=== PATIENT | female | born 1960 | race Caucasian/White ===

== ENCOUNTER 2016-07-19 11:46 | Emergency (ER) | payer BC ==
[2016-07-19 13:04] VITALS: BP 127/72
--- NOTE | 2016-07-19 14:05 | UC ---
Throat Pain/Nasal James HPI - HPI Summary HPI Summary: 55 female presents with complaints of having a possible sinus infection. She has been experiencing worsening nasal congestion, coughing, yellow nasal drainage, watery eyes, sinus pressure and headache that began about 3 days ago. Has been trying Dayquil and Ibuprofen without much relief. Patient has been unable to sleep and breathe out of her nose due to the congestion. Pressure in her head when bending over. Sinus pressure causing headache. Denies visual changes. States the post nasal drip has been causing her to cough. Denies any difficulty breathing, chest pain and SOB. She admits to some bilateral ear pain/ pressure. Has not recently been on antibiotics. Washing dishes with hot water does make her symptoms better. Denies fever/chills but does feel feverish at night, vomiting and diarrhea. Does admit to some nausea from the mucus production she feels she is swallowing at times. - History of Current Complaint Chief Complaint: UC Stated Complaint: SINUS,SORE THROAT,EAR PAIN Time Seen by Provider: 07/19/16 13:49 Hx Obtained From: Patient ?: No Onset/Duration: Sudden Onset, Lasting Days, Still Present, Worse Since Severity: Moderate Pain Intensity: 8 Pain Scale Used: 0-10 Numeric Cough: Sputum Appears - yellow Associated Signs & Symptoms: Positive: Sinus Discomfort, Nasal Discharge - Allergies/Home Medications Allergies/Adverse Reactions: Allergies Allergy/AdvReac Type Severity Reaction Status Date / Time No Known Allergies Allergy Verified 07/19/16 13:03 Home Medications: Home Medications Lisinopril TAB* [Prinivil TAB*] 5 mg PO DAILY 07/19/16 [History Confirmed ] [id number] [Vicks Dayquil/Nyquil Cold] 30 ml PO Q6H PRN 05/06 [History Confirmed 07/19/16] Sitagliptin Phosphate [Januvia] 25 mg PO DAILY 07/19/16 [History Confirmed 07/19] PMH/Surg Hx/FS Hx/Imm Hx Endocrine History Of: Reports: Diabetes Cardiovascular History Of: Reports: Cardiac Disorders - mitralvalve prolapse, Hypertension Cancer History Of: Denies: Breast Cancer - Surgical History Surgical History: Yes Surgery Procedure, Year, and Place: D&C AFTER MISCARRAGE. TONSILLECTOMY - Family History Known Family History: Positive: None - Social History Alcohol Use: Rare Substance Use Type: None Smoking Status (MU): Never Smoked Tobacco Have You Smoked in the Last Year: No - Immunization History Most Recent Influenza Vaccination: no Review of Systems Constitutional: Negative Skin: Negative Eyes: Negative ENT: Sore Throat, Ear Ache, Nasal Discharge, Other - sinus pressure Respiratory: Cough Cardiovascular: Negative Gastrointestinal: Negative Motor: Negative Neurovascular: Negative Musculoskeletal: Negative Neurological: Headache Psychological: Negative All Other Systems Reviewed And Are Negative: Yes Physical Exam Triage Information Reviewed: Yes Appearance: No Pain Distress, Well-Nourished, Ill-Appearing Vital Signs: Initial Vital Signs Temp 98 F 07/19/16 12:55 Pulse 91 07/19/16 12:55 Resp 18 07/19/16 12:55 BP 127/72 07/19/16 12:55 Pulse Ox 99 07/19/16 12:55 Vital Signs Reviewed: Yes Eye Exam: Normal Eyes: Positive: Conjunctiva Clear ENT: Positive: Normal ENT inspection, Hearing grossly normal, Pharynx normal, Nasal congestion, Nasal drainage, TMs normal. Negative: Tonsillar swelling, Tonsillar exudate Dental Exam: Normal Dental: Positive: Percussion Tenderness @ - maxillary and frontal. Negative: Cervical Lymphadenopathy Neck: Positive: Supple, Nontender, No Lymphadenopathy Respiratory: Positive: Chest non-tender, Lungs clear, Normal breath sounds, No respiratory distress, No accessory muscle use, Wheezing - left lower, patient has history of asthma and uses an inhaler Cardiovascular: Positive: RRR, No Murmur, Pulses Normal, Brisk Capillary Refill Abdomen Description: Positive: Nontender, No Organomegaly, Soft Bowel Sounds: Positive: Present Musculoskeletal Exam: Normal Musculoskeletal: Positive: Strength Intact, ROM Intact, No Edema Neurological Exam: Normal Psychological Exam: Normal Skin Exam: Normal Throat Pain/Nasal Course/Dx - Course Course Of Treatment: patient will be treated for sinusitis outpatient with augmentin and flonase. OTC remedies recommended. aware of worsening signs and symptoms to watch out for. - Differential Dx/Diagnosis Differential Diagnosis/HQI/PQRI: Influenza, Otitis Media, Pharyngitis, Sinusitis , URI Provider Diagnoses: acute sinusitits Discharge - Discharge Plan Condition: Stable Disposition: HOME Prescriptions: Amoxicillin/Clavulanate TAB* [Augmentin TAB 875*] 875 mg PO BID #200 tab Fluticasone NASAL SPRAY 50MCG* [Flonase NASAL SPRAY 50MCG*] 2 spray BOTH NARES DAILY PRN #1 btl PRN Reason: Congestion Patient Education Materials: Sinusitis (ED) Referrals: Nadira Laguna MD [Primary Care Provider] - Additional Instructions: Take prescribed antibiotic until entire dose is finished. Recommend taking with food to avoid upset stomach, and taking probiotic pills in between doses to replenish normal beto. Use flonase twice daily as needed for nasal congestion. Also recommend use of simone pot's or saline nasal spray. Drink plenty of fluids and wash hands frequently. Humidified air or hot showers may help relieve you symptoms. You may continue use of Dayquil Ibuprofen/Aleve as needed. If symptoms do not improve or worsen please seek medical attention.
== END 2016-07-19 14:14 | disposition home or self-care (01) ==
LOC: UCCORT 11:46
DX: J01.90 Acute sinusitis, unspecified (principal); I34.1 Nonrheumatic mitral (valve) prolapse; I10 Essential (primary) hypertension
CPT/HCPCS: 99212; G0463

== ENCOUNTER 2017-09-02 11:01 | Emergency (ER) | payer BC, OTHER ==
[2017-09-02 11:34] VITALS: BP 109/60
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
== END 2017-09-02 12:14 | disposition home or self-care (01) ==
LOC: UCCORT 11:01
DX: S09.90XA Unspecified injury of head, initial encounter (principal); W50.0XXA Accidental hit or strike by another person, initial encounter; Y93.9 Activity, unspecified; Y92.9 Unspecified place or not applicable; R51 Headache
CPT/HCPCS: 99212; G0463